=== PATIENT | male | born 1940 | race Caucasian/White ===

== ENCOUNTER 2023-09-22 15:35 | Observation (INO) ==
--- NOTE | 2023-09-22 15:41 | DR.EXTPAIN ---
HPI Time seen Time Seen by Provider: 09/22/23 15:39 Nurses notes reviewed Nurses Notes Review: Yes PMH PMH Past Medical History: Anemia, Arthritis, CHF, COPD, Coronary Artery Disease, CVA, Diabetes, Dyslipidemia, GERD, Hypertension and Renal Disease Past Surgical History: No Surgical History: Unknown Social History Do you use any recreational Drugs:: No PE Vital Signs Vitals: Vital Signs Temperature 98.4 F Pulse Rate 100 Pulse Rate 101 Pulse Rate 101 Pulse Rate 103 Pulse Rate 101 Pulse Rate 101 Pulse Rate 101 Pulse Rate 95 Pulse Rate 92 Pulse Rate 99 Pulse Rate 100 Pulse Rate 91 Pulse Rate 91 Pulse Rate 86 Pulse Rate 90 Pulse Rate 89 Pulse Rate 89 Pulse Rate 88 Pulse Rate 94 Pulse Rate 93 Pulse Rate 94 Pulse Rate 93 Respiratory Rate 27 Respiratory Rate 26 Respiratory Rate 21 Respiratory Rate 22 Respiratory Rate 7 Respiratory Rate 12 Respiratory Rate 9 Respiratory Rate 6 Respiratory Rate 15 Respiratory Rate 32 Respiratory Rate 28 Respiratory Rate 18 Respiratory Rate 23 Respiratory Rate 18 Respiratory Rate 15 Respiratory Rate 23 Respiratory Rate 22 Respiratory Rate 24 Respiratory Rate 28 Respiratory Rate 30 Respiratory Rate 36 Respiratory Rate 30 Respiratory Rate 26 Blood Pressure 123/71 Blood Pressure 85/47 Blood Pressure 102/59 Blood Pressure 136/85 Blood Pressure 155/89 Blood Pressure 144/91 Blood Pressure 178/91 Blood Pressure 171/87 O2 Sat by Pulse Oximetry 96 O2 Sat by Pulse Oximetry 97 O2 Sat by Pulse Oximetry 97 O2 Sat by Pulse Oximetry 96 O2 Sat by Pulse Oximetry 95 O2 Sat by Pulse Oximetry 95 O2 Sat by Pulse Oximetry 94 O2 Sat by Pulse Oximetry 92 O2 Sat by Pulse Oximetry 97 O2 Sat by Pulse Oximetry 98 O2 Sat by Pulse Oximetry 97 O2 Sat by Pulse Oximetry 96 O2 Sat by Pulse Oximetry 93 O2 Sat by Pulse Oximetry 98 O2 Sat by Pulse Oximetry 98 O2 Sat by Pulse Oximetry 99 O2 Sat by Pulse Oximetry 99 O2 Sat by Pulse Oximetry 99 O2 Sat by Pulse Oximetry 99 O2 Sat by Pulse Oximetry 99 O2 Sat by Pulse Oximetry 98 O2 Sat by Pulse Oximetry 98 ROR Labs Reviewed 09/22/23 17:50 09/22/23 17:50 Laboratory: WBC 12.8 X10^3/uL (3.6-10.0) H 09/22/23 17:50 RBC 4.07 X10^6/uL (4.7-6.0) L 09/22/23 17:50 Hgb 11.2 g/dL (13.5-18.0) L 09/22/23 17:50 Hct 34.6 % (42.0-54.0) L 09/22/23 17:50 MCV 84.9 fL (80.0-100.0) 09/22/23 17:50 MCH 27.5 pg (27.0-34.0) 09/22/23 17:50 MCHC 32.3 g/dL (33.0-35.0) L 09/22/23 17:50 RDW 17.8 % (11.6-16.5) H 09/22/23 17:50 Plt Count 177 X10^3/uL (150.0-450.0) 09/22/23 17:50 MPV 10.1 fL (7.4-11.0) 09/22/23 17:50 Neut % (Auto) 79.2 % (42.0-75.0) H 09/22/23 17:50 Lymph % (Auto) 12.1 % (21.0-51.0) L 09/22/23 17:50 [place] % (Auto) 4.9 % (0.0-13.0) 09/22/23 17:50 Eos % (Auto) 3.2 % (0.9-2.9) H 09/22/23 17:50 Baso % (Auto) 0.6 % (0.2-1.0) 09/22/23 17:50 Neut # (Auto) 10.1 x10^3/uL (2.2-4.8) H 09/22/23 17:50 Lymph # (Auto) 1.5 X10^3/uL (1.3-2.9) 09/22/23 17:50 [place] # (Auto) 0.6 x10^3/uL (0.3-0.8) 09/22/23 17:50 Eos # (Auto) 0.4 x10^3/uL (0.0-0.2) H 09/22/23 17:50 Baso # (Auto) 0.1 X10^3/uL (0.0-0.1) 09/22/23 17:50 Absolute Nucleated RBC 0.0 /100WBC 09/22/23 17:50 Sodium 141 mmol/L (136-145) 09/22/23 17:50 Corrected Sodium 142 mmol/L (136-145) 09/22/23 17:50 Potassium 4.6 mmol/L (3.5-5.1) 09/22/23 17:50 Chloride 103 mmol/L (98-107) 09/22/23 17:50 Carbon Dioxide 30.7 mmol/L (21-32) 09/22/23 17:50 BUN 48 mg/dL (7-18) H 09/22/23 17:50 Creatinine 1.88 mg/dL (0.70-1.30) H 09/22/23 17:50 Est GFR (MDRD) Af Amer 45 (>60) L 09/22/23 17:50 Est GFR (MDRD) Non-Af 37 (>60) L 09/22/23 17:50 Glucose 147 mg/dL (65-99) H 09/22/23 17:50 Calcium 9.0 mg/dL (8.5-10.1) 09/22/23 17:50 Corrected Calcium 9.7 mg/dL (8.5-10.1) 09/22/23 17:50 Total Bilirubin 0.50 mg/dL (0.2-1.0) 09/22/23 17:50 AST 15 Units/L (15-37) 09/22/23 17:50 ALT 12 Units/L (12-78) 09/22/23 17:50 Alkaline Phosphatase 124 Units/L (46-116) H 09/22/23 17:50 Creatine Kinase 39 Units/L (39-308) 09/22/23 17:50 Troponin I High Sens 7.9 ng/L (4.0-60.0) 09/22/23 20:03 Total Protein 7.4 g/dL (6.4-8.2) 09/22/23 17:50 Albumin 3.1 g/dL (3.4-5.0) L 09/22/23 17:50 Globulin 4.3 g/dL (2.5-4.5) 09/22/23 17:50 Albumin/Globulin Ratio 0.7 Ratio (1.1-2.1) L 09/22/23 17:50 Specimen Type Random urine 09/22/23 17:57 Urine Color Pale yellow (YELLOW) 09/22/23 17:57 Urine Appearance Clear (CLEAR) 09/22/23 17:57 Urine pH 7.0 (5.0 - 8.0) 09/22/23 17:57 Ur Specific [place] 1.010 (1.000-1.030) 09/22/23 17:57 Urine Protein Negative (NEGATIVE) 09/22/23 17:57 Urine Glucose (UA) Negative (NEGATIVE) 09/22/23 17:57 Urine Ketones Negative (NEGATIVE) 09/22/23 17:57 Urine Blood Negative (NEGATIVE) 09/22/23 17:57 Urine Nitrite Negative (NEGATIVE) 09/22/23 17:57 Urine Bilirubin Negative (NEGATIVE) 09/22/23 17:57 Urine Urobilinogen Normal (NORMAL) 09/22/23 17:57 Ur Leukocyte Esterase Negative (NEGATIVE) 09/22/23 17:57 Opioid Opioid Risk Tool Age (Carmine box if 16-45): No History of Preadolescent Sexual Abuse: No Total: 0 Total Score Risk Category: Low Risk Copyright: Jaren PELAYO predicting aberrant behaviors Discharge Plan Discharge Plan Patient Disposition: 09 ADMITTED INPATIENT Condition: Stable Prescriptions: No Action hydrocodone-acetaminophen 7.5-325 mg tablet 1 tab PO Q6H MDD 4 PRN (Reason: pain) 30 Days Qty: 120 0RF tamsulosin [Flomax] 0.4 mg capsule 0.4 mg PO QDAY gabapentin 300 mg capsule 300 mg PO TID Linzess 72 mcg capsule 72 mcg PO QDAY magnesium oxide 400 mg magnesium capsule 400 mg PO BID pantoprazole 40 mg tablet,delayed release (DR/EC) 40 mg PO QDAY clopidogrel [Plavix] 75 mg tablet 75 mg PO QDAY glipizide 5 mg tablet 5 mg PO QDAY Qty: 30 3RF spironolactone 25 mg tablet 25 mg PO QDAY Qty: 30 2RF furosemide 40 mg Tablet 40 mg PO BID atorvastatin 40 mg Tablet 40 mg PO HS polyethylene glycol 3350 [Miralax] 17 gram Powder In Packet 17 g PO DAILY docusate sodium [Colace] 100 mg Capsule 100 mg PO BID azelastine 137 mcg (0.1 %) Aerosol,[place] 1 spray INTRANASAL DAILY hydroxyzine pamoate [Vistaril] 25 mg Capsule 25 mg PO TID cholecalciferol (vitamin D3) 125 mcg (5,000 unit) Tablet 125 mcg PO DAILY Xarelto 15 mg Tablet 15 mg PO HS potassium chloride 20 mEq Tablet Extended Release 40 meq PO DAILY albuterol sulfate 1.25 mg/3 mL solution for nebulization 3 ml inhalation Q6H PRN Patient Comments: [NO ORIGINAL SIG] gentamicin 0.1 % ointment 1 applic TOPICAL DAILY Patient Comments: [NO ORIGINAL SIG] Aquaphor Original 41 % ointment 1 applic TOPICAL DAILY Patient Comments: [NO ORIGINAL SIG] guaifenesin [Mucinex] 600 mg Tablet Extended Release 12hr 600 mg PO Q12H PRN diclofenac sodium 1 % gel 1 g TOPICAL Q8H PRN Patient Comments: [NO ORIGINAL SIG] Health Concerns: Post Hospitalization: new medications and changes needed to prevent readmission or further decline. Pt educated and given instructions on all concerns. Plan of Treatment: Continue with present treatment and follow up plan. Pt is to keep follow up appointment as instructed and take medications as ordered. Orders to Discharge Patient Discharge Orders: Transfer (Routine); Ordered 09/22/23 Ordered By: ARTURO CERVANTES Follow ups/Referrals Follow ups/Referrals: Jorge Gray [Primary Care Provider] - 3 days
[2023-09-22] MEDS ORDERED: ZOFRAN INJ 4 MG VIAL ONE (15:42)
[2023-09-22] MEDS ORDERED: MORPHINE SULFATE INJ 4 MG ONE (15:42)
[2023-09-22] MEDS: MORPHINE SULFATE INJ 4 MG IM ONE (15:46)
[2023-09-22 15:48] VITALS: BMI 28.5
[2023-09-22] MEDS: ZOFRAN INJ 4 MG VIAL IM ONE (15:48)
[2023-09-22 18:00] LABS: BASOPHILS # (AUTO) 0.1 X10^3/uL (0.0-0.1); BASOPHILS % (AUTO) 0.6 % (0.2-1.0); EOSINOPHILS # (AUTO) 0.4 x10^3/uL (0.0-0.2); EOSINOPHILS % (AUTO) 3.2 % (0.9-2.9); HEMATOCRIT 34.6 % (42.0-54.0); HEMOGLOBIN 11.2 g/dL (13.5-18.0); LYMPHOCYTES # (AUTO) 1.5 X10^3/uL (1.3-2.9); LYMPHOCYTES % (AUTO) 12.1 % (21.0-51.0); MEAN CORPUSCULAR HEMOGLOBIN 27.5 pg (27.0-34.0); MEAN CORPUSCULAR HGB CONC 32.3 g/dL (33.0-35.0); MEAN CORPUSCULAR VOLUME 84.9 fL (80.0-100.0); MEAN PLATELET VOLUME 10.1 fL (7.4-11.0); MONOCYTES # (AUTO) 0.6 x10^3/uL (0.3-0.8); MONOCYTES % (AUTO) 4.9 % (0.0-13.0); NEUTROPHILS # (AUTO) 10.1 x10^3/uL (2.2-4.8); NEUTROPHILS % (AUTO) 79.2 % (42.0-75.0); PLATELET COUNT 177 X10^3/uL (150.0-450.0); RED BLOOD COUNT 4.07 X10^6/uL (4.7-6.0); RED CELL DISTRIBUTION WIDTH 17.8 % (11.6-16.5); WHITE BLOOD COUNT 12.8 X10^3/uL (3.6-10.0)
--- NOTE | 2023-09-22 18:04 | EKG ---
Test Reason : Left arm pain Blood Pressure : */* mmHG Vent. Rate : 95 BPM Atrial Rate : * BPM P-R Int : * ms QRS Dur : 88 ms QT Int : 348 ms P-R-T Axes : * 237 157 degrees QTc Int : 437 ms Nsr with severe 1st degree AV block Low voltage QRS Possible Anterolateral infarct , age undetermined Abnormal ECG No previous ECGs available Confirmed by Navin Fuentes ([id number]) on 09/23/2023 2:37:31 PM Referred By: Confirmed By: Navin Fuentes
[2023-09-22 18:23] LABS: ALBUMIN 3.1 g/dL (3.4-5.0); CARBON DIOXIDE 30.7 mmol/L (21-32); COR CA(FOR HYPOALB) 9.7 mg/dL (8.5-10.1); CREATININE 1.88 mg/dL (0.70-1.30); POTASSIUM 4.6 mmol/L (3.5-5.1); TOTAL PROTEIN 7.4 g/dL (6.4-8.2)
[2023-09-22 18:24] LABS: BILIRUBIN,URINE NEGATIVE (NEGATIVE); BLOOD/HEMOGLOBIN,URINE NEGATIVE (NEGATIVE); GLUCOSE, URINE NEGATIVE (NEGATIVE); KETONES,URINE NEGATIVE (NEGATIVE); LEUKOCYTE ESTERASE ,URINE NEGATIVE (NEGATIVE); NITRITES,URINE NEGATIVE (NEGATIVE); PROTEIN,URINE NEGATIVE (NEGATIVE); UROBILINOGEN,URINE NORMAL (NORMAL)
[2023-09-22 18:25] LABS: APPEARANCE,URINE CLEAR (CLEAR); COLOR,URINE PALE YELLOW (YELLOW)
--- NOTE | 2023-09-22 19:01 | RAD ---
EXAM:HUMERUS, LEFTHISTORY:LEFT ARM PAIN RADIATING DOWN TO HAND ; HX- COPD, CHF, DIABETIES, ANEMIA, CVA; BEST LATERAL POSSIBLE DUE TO PT RANGE OF MOTIONCOMPARISON:None.TECHNIQUE:Frontal and lateral views of thelefthumerus were obtained.FINDINGS:There is a vague lucency noted of the acromion. It is unclear if this represents a coursing nutrient vessel or whether there is a nondisplaced fracture through this area and/or bone contusion. There are no lytic blastic lesions identified. No soft tissue swelling is seen.IMPRESSION:Query nondisplaced fracture and/or bone contusion of the acromion.The humerus appears intact.THIS IS AN ELECTRONICALLY VERIFIED FINAL REPORT09/22/2023 6:58 PM - Electronically signed by Sana Cuello MD
[2023-09-22] MEDS ORDERED: ZOFRAN INJ 4 MG VIAL IVP PRN (21:12)
--- NOTE | 2023-09-22 22:09 | CT ---
EXAM:UPPER EXT W/O CONHISTORY:LT SHOULDER PAIN; Pt started c/o left arm pain, left hand pain, left elbow pain approx 1 hour ago that has gotten worse.COMPARISON:None.TECHNIQUE:Nonenhan aliya spiral CT imaging was performed through the left shoulder and axial, coronal, and sagittal CT images were generated.FINDINGS:There is degeneration of the AC joint. Humeral head is high-riding there is probably a chronic rotator cuff tear. There is degeneration of the glenohumeral joint. There is degeneration of the spine. There is degeneration of the sternoclavicular joint.IMPRESSION:1. Nothing acute.2. Chronic degenerative changes.3. Suspect chronic rotator cuff tear.THIS IS AN ELECTRONICALLY VERIFIED FINAL REPORT09/22/2023 10:05 PM - Electronically signed by Johnny Gamez MD
[2023-09-22] MEDS: NS 1,000 ML IV 1,000 ML IV SCH (22:47)
[2023-09-22] MEDS: MORPHINE SULFATE INJ 4 MG IVP PRN (22:51)
[2023-09-22 23:40] VITALS: RESP 19
[2023-09-23] MEDS: NORCO 7.5/325 MG TAB PO PRN (05:43)
[2023-09-23 05:59] LABS: BASOPHILS % (AUTO) 0.5 % (0.2-1.0); EOSINOPHILS # (AUTO) 0.6 x10^3/uL (0.0-0.2); EOSINOPHILS % (AUTO) 6.9 % (0.9-2.9); HEMATOCRIT 33.1 % (42.0-54.0); HEMOGLOBIN 10.7 g/dL (13.5-18.0); MEAN CORPUSCULAR HEMOGLOBIN 27.5 pg (27.0-34.0); MEAN CORPUSCULAR HGB CONC 32.4 g/dL (33.0-35.0); MEAN PLATELET VOLUME 10.4 fL (7.4-11.0); MONOCYTES # (AUTO) 0.7 x10^3/uL (0.3-0.8); MONOCYTES % (AUTO) 8.1 % (0.0-13.0); NEUTROPHILS % (AUTO) 60.5 % (42.0-75.0); PLATELET COUNT 168 X10^3/uL (150.0-450.0); RED CELL DISTRIBUTION WIDTH 17.6 % (11.6-16.5); WHITE BLOOD COUNT 8.2 X10^3/uL (3.6-10.0)
[2023-09-23 06:23] LABS: ALBUMIN 2.7 g/dL (3.4-5.0); CALCIUM 8.9 mg/dL (8.5-10.1); CARBON DIOXIDE 32.5 mmol/L (21-32); COR CA(FOR HYPOALB) 9.9 mg/dL (8.5-10.1); CREATININE 1.8 mg/dL (0.70-1.30); POTASSIUM 4.1 mmol/L (3.5-5.1); TOTAL PROTEIN 6.8 g/dL (6.4-8.2)
[2023-09-23] MEDS ORDERED: NEOSPORIN OINT TOP SCH (09:00)
[2023-09-23] MEDS ORDERED: GENTAMICIN TOPICAL OINT TOP SCH (09:00)
[2023-09-23] MEDS ORDERED: TYLENOL 325 MG TAB PO ONE (10:29)
[2023-09-23] MEDS: TYLENOL 325 MG TAB PO PRN (10:33)
[2023-09-23 13:29] VITALS: BP 140/68; PULSE 82; TEMP 97.5; O2SAT 97
--- NOTE | 2023-09-25 17:53 | DR.SSS ---
SHORT STAY SUMMARY Admission Date Date of Admission: 09/22/23 Discharge Date Discharge Date: 09/23/23 Admission Diagnoses Admission Diagnoses: Acute left arm pain- possible fracture, CVD, CKD, Afib, DM type 2, COPD, GERD, Hyperlipidemia, Heart failure, BPH, CAD Discharge Diagnoses Discharge Diagnoses: Left arm fracture ruled out, Add Chronic left degneration of AC joint, probable chronic left rotator cuff tear, chronic degeneration of the glenohumeral joint, chronic degeneration of spine, chronic degeneration of the sternoclavicular j oint , Same as admission Chief Complaint Chief Complaint: Left arm pain History of Present Illness History of Present Illness: Patient is a 83 year old white male who is a long- term resident of [facility] and ER admission on 09/22/23 for possible left query nondisplaced fracture and/or bone contusion of the acrominon and intractable left arm pain. Past Medical History Past Medical History: Anemia, Arthritis, CHF, COPD, Coronary Artery Disease, CVA, Diabetes, Dyslipidemia, GERD, Hypertension and Renal Disease Past Surgical History Surgical History: Ortho Surgery and Tonsillectomy Allergies Allergies Allergy/AdvReac Type Severity Reaction Status Date / Time Sulfa (Sulfonamide Allergy Unknown Verified 09/22/23 20:28 Antibiotics) [SULFA] Medications Home Medications: Sulfa (Sulfonamide Antibiotics) [SULFA] Allergy (Unknown, Verified 09/22/23 20:28) CONTINUE taking the following medications diclofenac sodium 1 % topical gel 1 g topical Q8H PRN 09/22/23 [History] gentamicin 0.1 % topical ointment 1 applic topical DAILY 09/22/23 [History] guaifenesin 600 mg tablet, extended release 12 hr (Mucinex) 600 mg PO Q12H PRN 09/22/23 [History] white petrolatum 41 % topical ointment (Aquaphor Original) 1 applic topical DAILY 09/22/23 [History] Family History Family Medical History: Diabetes Mellitus, Cancer, Coronary Artery Disease and Hypertension Social History Does patient currently use any type of tobacco product: No Have you used tobacco products in the last 12 months: No Type of Tobacco Use: None Does any household member use tobacco: No Alcohol Use: None Drug Use: None Review of Systems Constitutional: No Symptoms Reported Eyes: No Symptoms Reported ENT: No Symptoms Reported Respiratory: No Symptoms Reported Cardiovascular: No Symptoms Reported Gastrointestinal: No Symptoms Reported Genitourinary: No Symptoms Reported Musculoskeletal: Shoulder Pain and Arm Pain Skin: No Symptoms Reported Neurological: No Symptoms Reported Physical Exam Vital Signs: Last Vital Signs Temp 97.5 F L 09/23/23 08:00 Pulse 82 09/23/23 08:00 Resp 19 09/23/23 13:30 BP 140/68 09/23/23 08:00 Pulse Ox 97 09/23/23 08:00 O2 Del Method Room Air 09/23/23 08:00 Oriented: Person Eyes: Normal Ear: Normal Nose: Normal Throat: Normal Respiratory: RLL Diminished and LLL Diminished Cardiovascular: Normal Auscultation: Bowel Sounds: Normal Skin: Decreased [place] Musculoskeletal: Left, Shoulder, Arm and Tender Psychiatric: Anxiety and Agitation Mood Description: Angry Affect: Angry Speech Pattern: Clear and Inappropriate; negative Slurred Labs Labs: Laboratory Last Values WBC 8.2 X10^3/uL (3.6-10.0) 09/23/23 05:18 RBC 3.90 X10^6/uL (4.7-6.0) L 09/23/23 05:18 Hgb 10.7 g/dL (13.5-18.0) L 09/23/23 05:18 Hct 33.1 % (42.0-54.0) L 09/23/23 05:18 MCV 85.0 fL (80.0-100.0) 09/23/23 05:18 MCH 27.5 pg (27.0-34.0) 09/23/23 05:18 MCHC 32.4 g/dL (33.0-35.0) L 09/23/23 05:18 RDW 17.6 % (11.6-16.5) H 09/23/23 05:18 Plt Count 168 X10^3/uL (150.0-450.0) 09/23/23 05:18 MPV 10.4 fL (7.4-11.0) 09/23/23 05:18 Neut % (Auto) 60.5 % (42.0-75.0) 09/23/23 05:18 Lymph % (Auto) 24.0 % (21.0-51.0) 09/23/23 05:18 [place] % (Auto) 8.1 % (0.0-13.0) 09/23/23 05:18 Eos % (Auto) 6.9 % (0.9-2.9) H 09/23/23 05:18 Baso % (Auto) 0.5 % (0.2-1.0) 09/23/23 05:18 Neut # (Auto) 5.0 x10^3/uL (2.2-4.8) H 09/23/23 05:18 Lymph # (Auto) 2.0 X10^3/uL (1.3-2.9) 09/23/23 05:18 [place] # (Auto) 0.7 x10^3/uL (0.3-0.8) 09/23/23 05:18 Eos # (Auto) 0.6 x10^3/uL (0.0-0.2) H 09/23/23 05:18 Baso # (Auto) 0.0 X10^3/uL (0.0-0.1) 09/23/23 05:18 Absolute Nucleated RBC 0.1 /100WBC 09/23/23 05:18 Sodium 144 mmol/L (136-145) 09/23/23 05:18 Corrected Sodium 145 mmol/L (136-145) 09/23/23 05:18 Potassium 4.1 mmol/L (3.5-5.1) 09/23/23 05:18 Chloride 105 mmol/L (98-107) 09/23/23 05:18 Carbon Dioxide 32.5 mmol/L (21-32) H 09/23/23 05:18 BUN 47 mg/dL (7-18) H 09/23/23 05:18 Creatinine 1.80 mg/dL (0.70-1.30) H 09/23/23 05:18 Est GFR (MDRD) Af Amer 47 (>60) L 09/23/23 05:18 Est GFR (MDRD) Non-Af 39 (>60) L 09/23/23 05:18 Glucose 161 mg/dL (65-99) H 09/23/23 05:18 POC Glucose (mg/dL) 153 mg/dL (65-99) H 09/23/23 05:28 Calcium 8.9 mg/dL (8.5-10.1) 09/23/23 05:18 Corrected Calcium 9.9 mg/dL (8.5-10.1) 09/23/23 05:18 Magnesium 2.0 mg/dL (2.0-2.9) 09/23/23 05:18 Total Bilirubin 0.50 mg/dL (0.2-1.0) 09/23/23 05:18 AST 14 Units/L (15-37) L 09/23/23 05:18 ALT 11 Units/L (12-78) L 09/23/23 05:18 Alkaline Phosphatase 112 Units/L (46-116) 09/23/23 05:18 Creatine Kinase 39 Units/L (39-308) 09/22/23 17:50 Troponin I High Sens 7.9 ng/L (4.0-60.0) 09/22/23 20:03 Total Protein 6.8 g/dL (6.4-8.2) 09/23/23 05:18 Albumin 2.7 g/dL (3.4-5.0) L 09/23/23 05:18 Globulin 4.1 g/dL (2.5-4.5) 09/23/23 05:18 Albumin/Globulin Ratio 0.7 Ratio (1.1-2.1) L 09/23/23 05:18 Specimen Type Random urine 09/22/23 17:57 Urine Color Pale yellow (YELLOW) 09/22/23 17:57 Urine Appearance Clear (CLEAR) 09/22/23 17:57 Urine pH 7.0 (5.0 - 8.0) 09/22/23 17:57 Ur Specific [place] 1.010 (1.000-1.030) 09/22/23 17:57 Urine Protein Negative (NEGATIVE) 09/22/23 17:57 Urine Glucose (UA) Negative (NEGATIVE) 09/22/23 17:57 Urine Ketones Negative (NEGATIVE) 09/22/23 17:57 Urine Blood Negative (NEGATIVE) 09/22/23 17:57 Urine Nitrite Negative (NEGATIVE) 09/22/23 17:57 Urine Bilirubin Negative (NEGATIVE) 09/22/23 17:57 Urine Urobilinogen Normal (NORMAL) 09/22/23 17:57 Ur Leukocyte Esterase Negative (NEGATIVE) 09/22/23 17:57 Assessment/Plan (1) Left upper limb pain: (2) Primary hypertension: (3) Type 2 diabetes mellitus: (4) COPD (chronic obstructive pulmonary disease): Hospital Course Hospital Course: Patient is a 83 year old white male who is a long-term resident of [facility] and ER admission on 09/22/23 for possible left query nondisplaced fracture and/or bone contusion of the acrominon and intractable left arm pain. ER labs: WBC 12.8, HGB 11.2, BUN 48/Creatinine 1.88, CK 39, Troponin 7.9. He had an EKG while in ER. Patient has a past medical history of CVD, CKD, Afib, DM type 2, COPD, GERD, Hyperlipidemia, Heart failure, BPH, CAD. He was admitted for further work up and evaluation. Upon admission, patient had a CT left upper extremity that showed nothing acute, chronic degenerative changes, and suspected chronic rotator cuff tear. For pain control, he was treated with IV morphine initially. However IV access was lost during the night and he was changed to PO [place] 7.5/325mg PRN. Morning labs: WBC 8.2, hgb 10.7, BUN 47, Creatinine 1.80. Patient stated that his pain was much improved and he was eager to return to [place]. We allowed him to discharge. Please see discharge plan for list of discharge medications and modifications that we made, electronic medical record for diagnostic tests and labs. The patient was instructed to return to the ER if condition changed or worsened unexpectedly. Discharge Medications Discharge Medications: Home Medication List diclofenac sodium 1 % topical gel 1 g topical Q8H PRN 09/22/23 [History] gentamicin 0.1 % topical ointment 1 applic topical DAILY 09/22/23 [History] guaifenesin 600 mg tablet, extended release 12 hr (Mucinex) 600 mg PO Q12H PRN 09/22/23 [History] white petrolatum 41 % topical ointment (Aquaphor Original) 1 applic topical DAILY 09/22/23 [History] Prescriptions: Discharge Plan Discharge Plan Patient Disposition: 01 HOME, SELF-CARE Condition: Stable Health Concerns: Post Hospitalization: new medications and changes needed to prevent readmission or further decline. Pt educated and given instructions on all concerns. Plan of Treatment: Continue with present treatment and follow up plan. Pt is to keep follow up appointment as instructed and take medications as ordered. Prescriptions: Continued hydrocodone-acetaminophen 7.5-325 mg tablet 1 tab PO Q6H MDD 4 PRN (Reason: pain) 30 Days Qty: 120 0RF tamsulosin [Flomax] 0.4 mg capsule 0.4 mg PO QDAY gabapentin 300 mg capsule 300 mg PO TID Linzess 72 mcg capsule 72 mcg PO QDAY magnesium oxide 400 mg magnesium capsule 400 mg PO BID pantoprazole 40 mg tablet,delayed release (DR/EC) 40 mg PO QDAY clopidogrel [Plavix] 75 mg tablet 75 mg PO QDAY glipizide 5 mg tablet 5 mg PO QDAY Qty: 30 3RF spironolactone 25 mg tablet 25 mg PO QDAY Qty: 30 2RF furosemide 40 mg Tablet 40 mg PO BID atorvastatin 40 mg Tablet 40 mg PO HS polyethylene glycol 3350 [Miralax] 17 gram Powder In Packet 17 g PO DAILY docusate sodium [Colace] 100 mg Capsule 100 mg PO BID azelastine 137 mcg (0.1 %) Aerosol,[place] 1 spray INTRANASAL DAILY hydroxyzine pamoate [Vistaril] 25 mg Capsule 25 mg PO TID cholecalciferol (vitamin D3) 125 mcg (5,000 unit) Tablet 125 mcg PO DAILY Xarelto 15 mg Tablet 15 mg PO HS potassium chloride 20 mEq Tablet Extended Release 40 meq PO DAILY albuterol sulfate 1.25 mg/3 mL solution for nebulization 3 ml inhalation Q6H PRN Patient Comments: [NO ORIGINAL SIG] gentamicin 0.1 % ointment 1 applic TOPICAL DAILY Patient Comments: [NO ORIGINAL SIG] Aquaphor Original 41 % ointment 1 applic TOPICAL DAILY Patient Comments: [NO ORIGINAL SIG] guaifenesin [Mucinex] 600 mg Tablet Extended Release 12hr 600 mg PO Q12H PRN diclofenac sodium 1 % gel 1 g TOPICAL Q8H PRN Patient Comments: [NO ORIGINAL SIG] Orders to Discharge Patient Discharge Orders: Discharge (Routine); Ordered 09/23/23 Ordered By: YEE SCOTT Follow ups/Referrals Follow ups/Referrals: Jorge Gray [Primary Care Provider] - 3 days Instructions Stand Alone Forms: Excuse From Work or School, Post Hospital Follow Up Care
== END 2023-09-23 11:00 | disposition home or self-care (01) ==
LOC: ER 15:35 → MED/SURG 15:35
PROVIDERS: ADMIT Internal Medicine; ATTEND Family Medicine
DX: I25.10 Atherosclerotic heart disease of native coronary artery without angina pectoris; I11.0 Hypertensive heart disease with heart failure; M79.622 Pain in left upper arm; K21.9 Gastro-esophageal reflux disease without esophagitis; E11.65 Type 2 diabetes mellitus with hyperglycemia; R94.31 Abnormal electrocardiogram [ECG] [EKG]; N18.9 Chronic kidney disease, unspecified; Z86.73 Personal history of transient ischemic attack (TIA), and cerebral infarction without residual deficits; J44.9 Chronic obstructive pulmonary disease, unspecified